=== PATIENT | female | born 1955 | race Caucasian/White ===

== ENCOUNTER 2025-10-17 10:21 | Inpatient (IN) | payer MEDICARE, OTHER, SELFPAY ==
[2025-10-03 14:03] VITALS: BMI 22.6
--- NOTE | 2025-10-04 14:16 | PTCARENOTE ---
Abn ECG, Dr. Woodruff notified, no additional interventions required.
[2025-10-17] VITALS (10 sets, daily range): BP systolic 100–139; BP diastolic 53–85; BMI 22.6
[2025-10-17] MEDS: CELEBREX 200 MG PO (11:01)
[2025-10-17] MEDS: TYLENOL 1000 MG PO (11:01)
[2025-10-17] MEDS: NORMOSOL-R/PLASMALYTE-A 1000 IV (11:12)
[2025-10-17] MEDS: EMEND 40 MG PO (11:16)
--- NOTE | 2025-10-17 13:57 | W.PN.UPDATE ---
Update Note
Progress Note Update
69F s/p R 1st MPJ fusion, Jeanna 2/, neuroma excision /, tailors bunionectomy
- would appreciate admission to hospitalist service
- NWB RLE
- pt/ot eval
- elevate RLE on 2-3 pillows, ice behind the knee
- 24 hrs sx ppx abx
- postop analgesia
- will reassess on AM rounds
--- NOTE | 2025-10-17 14:28 | HPS.HSE ---
Family Physician
-
Family Physician: Pilar Singh
Chief Complaint
-
right first MPJ fusion
History of Present Illness
Ms. 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 She underwent right first MPJ fusion, Jeanna 2/, neuroma
excision 2/3, and tailor's bunion ectomy. She tolerated the procedure well. Remains hemodynamically stable. She is to be nonweightbearing on her right lower extremity. She will need PT/OT evaluation. Podiatry following.
Medical History
Past Medical History
Past Medical History: Reports Other
Additional Past Medical History:
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
Past Surgical History: Reports Other
Additional Past Surgical History:
Right elbow (2006), bilateral cataracts (04/2024)
Social History
Tobacco: Non-smoker
Family History
Family History: Not pertinent
Allergies / Home Medications
Allergies reflects when Allergies were last updated in [employer].
Home Medications with original date entered in [employer]
Allergy/Medication List:
Allergies
Allergy/AdvReac Type Severity Reaction Status Date / Time
bee venom protein (honey bee) Allergy Anaphylaxis Verified 10/17/25 10:50
prochlorperazine Allergy Tardive Unverified 10/17/25 10:50
Dyskinesia
Home Medications
albuterol sulfate 90 mcg/actuation aerosol inhaler 2 puff inhalation PRN PRN SOB, Wheezes 10/03/25
cholecalciferol (vitamin D3) 50 mcg (2,000 unit) capsule (Vitamin D3) 50 mcg PO DAILY 10/03/25
cyanocobalamin (vitamin B-12) 1,000 mcg tablet (Vitamin B-12) 1,000 mcg PO DAILY 10/03/25
epinephrine 0.3 mg/0.3 mL injection, auto-injector 0.3 mg IM Q5-15M PRN Anaphylaxis 10/03/25
hyoscyamine sulfate 0.375 mg tablet,extended release,12 hr (Levbid) 0.375 mg PO PRN PRN IBS 10/03/25
omega 6-xjx-ohc-fish oil 1,000 mg (120 mg-180 mg) capsule (Fish Oil) 2 cap PO QPM 10/03/25
red yeast rice 600 mg tablet 1,200 mg PO QPM 10/03/25
turmeric 400 mg capsule 1,000 mg PO QPM 10/03/25
Review of Systems
-
History Source: Patient
A 12 point ROS was completed and negative except as noted: Yes
Musculoskeletal: Reports Joint Pain (R foot)
Physical Exam
Vital Signs
Vital Signs
Temp Pulse Resp BP Pulse Ox
98.2 F 77 13 123/76 96
10/17/25 13:50 10/17/25 14:15 10/17/25 14:15 10/17/25 14:00 10/17/25 14:15
Physical Exam
General: No Apparent Distress
Impression/Plan
-
General: No Apparent Distress, Comfortable and Conversant
HEENT: NormoCephalic, Moist mucous membranes, Atraumatic
Respiratory: Clear and Non Labored Respirations
Cardiac: S1/S2 and Regular Rhythm; No Rub or Gallop
GI: Soft, Non Tender, Non Distended and Normal Bowel Sounds
Musculoskeletal: No Edema, R foot with postsurgical dressing CDI
Skin: Warm and dry
: NO [place]
Neuro: Awake, Alert, Nonfocal/grossly intact
Psych: Calm and Intact Judgment/Insight
Ms. 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 She underwent right first MPJ fusion, Jeanna 2/3, neuroma
excision 2/3, and tailor's bunion ectomy. She tolerated the procedure well. Remains hemodynamically stable. She is to be nonweightbearing on her right lower extremity. She will need PT/OT evaluation. Podiatry following.
Status post right foot surgery:
- Status post right first MPJ fusion, Jeanna 2/3, neuroma excision 2/3, and tailor's bunionectomy 10/17/2025
- Tolerated procedure well
- Nonweightbearing right foot
- Pain control as needed
- To be evaluated by PT/OT
- Podiatry following
Asthma:
- No acute exacerbation
- Continue albuterol as needed for wheezing
DVT prophylaxis: Subcu heparin
CODE STATUS: Full code
[2025-10-17] MEDS: HEPARIN 5000 UNITS SC (16:39)
[2025-10-17] MEDS: NEURONTIN 300 MG PO ×2 (16:39→22:37)
[2025-10-17] MEDS: ANCEF 10 IV (20:13)
[2025-10-18] MEDS: HEPARIN 5000 UNITS SC (00:33)
[2025-10-18] MEDS: ZOFRAN 4 MG IV (00:59)
[2025-10-18 03:15] VITALS: BP 118/67
[2025-10-18] MEDS: ANCEF 10 IV ×2 (03:54→12:12)
[2025-10-18 07:21] LABS: Hematocrit 37.9 % (37.0-47.0); Hemoglobin 13.1 g/dL (12.0-16.0); Mean Corp Hgb Conc. 34.6 g/dL (33.0-37.0); Mean Corpuscular Volume 85.7 fL (81.0-99.0); Nucleated Red Blood Cells % 0 %; Platelet Count 271 10^3/uL (130-400); Red Cell Dist. Width 12.9 % (11.5-14.5)
[2025-10-18 08:05] VITALS: BP 110/58
[2025-10-18 08:18] LABS: Blood Urea Nitrogen 11 mg/dl (7-17); Calcium 9.1 mg/dl (8.4-10.2); Carbon Dioxide 27 mmol/L (22-30); Chloride 102 mmol/L (98-107); Estimated Creatinine Clearance 61 ml/min; Glucose 118 mg/dl (70-99); Potassium 4.4 mmol/L (3.5-5.1); Sodium 135 mmol/L (135-145); eGFR > 60.00
--- NOTE | 2025-10-18 08:41 | W.PN.UPDATE ---
Update Note
Progress Note Update
69F s/p R 1st MPJ fusion, Jeanna 2, neuroma excision 2/3, tailors bunionectomy. Patient doing well this AM on AM rounds. CFT wnl, sensation intact to pedal distributions, motor function intact to toes, calf soft supple nontender to touch, mild
drainage on dressing.
- NWB RLE
- pt/ot eval
- dressings remain C/D/I
- elevate RLE on 2-3 pillows, ice behind the knee
- 24 hrs sx ppx abx, not a barrier to discharge
- postop analgesia
- She may follow up in office with myself or Narinder.
[2025-10-18] MEDS: VITAMIN D3 (cholecalciferol) 50 MCG PO (09:32)
[2025-10-18] MEDS: HEPARIN SC (09:32)
[2025-10-18] MEDS: NEURONTIN 300 MG PO (09:32)
[2025-10-18] MEDS: VITAMIN B-12 1000 MCG PO (09:33)
[2025-10-18] MEDS: MOTRIN 600 MG PO (09:38)
[2025-10-18 10:13] VITALS: BP 134/69; PULSE 78; O2SAT 95
--- NOTE | 2025-10-18 10:25 | W.PN.HOSP.TC ---
Today's Communication/Plan
-
dc home
pain control
Assessment / Plan
Assessment / Plan
General: No Apparent Distress, Comfortable and Conversant
HEENT: NormoCephalic, Moist mucous membranes, Atraumatic
Respiratory: Clear and Non Labored Respirations
Cardiac: S1/S2 and Regular Rhythm; No Rub or Gallop
GI: Soft, Non Tender, Non Distended and Normal Bowel Sounds
Musculoskeletal: No Edema, R foot with postsurgical dressing CDI, sensation intact R foot toes, able to move it to some extent
Skin: Warm and dry
: NO [place]
Neuro: Awake, Alert, Nonfocal/grossly intact
Psych: Calm and Intact Judgment/Insight
Ms. 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 She underwent right first MPJ fusion, Jeanna 2/3, neuroma
excision 2/3, and tailor's bunion ectomy. She tolerated the procedure well. Remains hemodynamically stable. She is to be nonweightbearing on her right lower extremity. She will need PT/OT evaluation. Podiatry following.
Status post right foot surgery:
- Status post right first MPJ fusion, Jeanna 2/3, neuroma excision 2/3, and tailor's bunionectomy 10/17/2025
- Tolerated procedure well
- Nonweightbearing right foot possibly 4 weeks. f/u appt with podiatry to reassess may be in boot thereafter -per pt.
- Pain control as needed
- d/w with Dr. Pelaez-qamar aspirin 325mg for DVT ppx.
- Podiatry following
Asthma:
- No acute exacerbation
- Continue albuterol as needed for wheezing
DVT prophylaxis: Subcu heparin
CODE STATUS: Full code
PT-HH
Dispo-home vn.
More than 30 minutes spent in discharge including
Final examination of the patient
Summarizing hospital stay
Instructions for continuing care to all relevant caregivers
Preparation of discharge records, prescriptions, and referral forms
Total time spent (in minutes): 53
Anticipated Discharge: Today
Subjective/Interval History
-
Date of Service: October 18, 2025
denies severe pain in R foot
was feeling/nauseous overnight but not this morning
Objective Data
-
Labs:
Laboratory Results
10/18/25
06:36
WBC 9.8
Hgb 13.1
Hct 37.9
Plt Count 271
Sodium 135
Potassium 4.4
Chloride 102
Carbon Dioxide 27
BUN 11
Creatinine 0.7
Glucose 118 H
Calcium 9.1
Vital Signs:
Vital Signs
Temp Pulse Resp BP Pulse Ox
97.6 F 51 15 110/58 96
10/18/25 08:05 10/18/25 08:05 10/18/25 08:05 10/18/25 08:05 10/18/25 08:05
I&O
10/17/25 10/18/25 10/19/25
06:59 06:59 06:59
Intake Total 630 / 630
Balance 630 / 630
--- NOTE | 2025-10-18 10:37 | W.DCSUMMARY ---
Discharge Summary
Discharge Data
Date of Admission: 10/17/25
Date of Discharge: 10/18/25
-
Pending Results: No
Hospital Course
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 She underwent right first MPJ fusion, Jeanna 2/3, neuroma excision 2/3, and
tailor's bunion ectomy. She tolerated the procedure well. Remains hemodynamically stable. She is to be nonweightbearing on her right lower extremity. Postop patient did well with physical and Occupational Therapy. Per creative developer to start
patient on aspirin 325 mg daily for DVT prophylaxis. Patient be discharged home with home health and patient to follow-up outpatient with her surgeon.
Discharge Plan
-
Patient Disposition: Home with Home Care
Discharge Diagnosis/Procedures: Status post Right 1st MPJ fusion, Jeanna 2/3, neuroma excision 2/3, and tailor's bunionectomy 10/17/2025
Condition: Fair
Activity: Do not bear weight R leg
Driving Restrictions: No driving
Other Services: VN, PT and OT
Activity Restrictions/Additional Instructions:
elevate Right leg on 2-3 pillows, ice behind the knee
Referrals:
Pilar Singh DO [Family Provider, Internal Medicine] - in less than 1 week
Cuong Barcenas DPM [Active, Podiatry] - in two weeks
Prescriptions:
New
acetaminophen [Tylenol] 325 mg tablet
650 mg PO Q4H PRN (Reason: Pain) Qty: 30 0RF
tramadol 25 mg tablet
25 mg PO Q8HPRN PRN (Reason: severe pain) Qty: 15 0RF
aspirin 325 mg tablet
325 mg PO DAILY Qty: 28 0RF
Rx Instructions:
Take with meals/snacks
Continued
cyanocobalamin (vitamin B-12) [Vitamin B-12] 1,000 mcg Tablet
1,000 mcg PO DAILY
hyoscyamine sulfate [Levbid] 0.375 mg Tablet Extended Release 12 Hr
0.375 mg PO PRN PRN (Reason: IBS)
epinephrine 0.3 mg/0.3 mL Auto-Injector
0.3 mg IM Q5-15M PRN (Reason: Anaphylaxis)
albuterol sulfate 90 mcg/actuation Hfa Aerosol Inhaler
2 puff INHALATION PRN PRN (Reason: SOB, Wheezes)
cholecalciferol (vitamin D3) [Vitamin D3] 50 mcg (2,000 unit) Capsule
50 mcg PO DAILY
omega 0-yly-rlo-fish oil [Fish Oil] 1,000 (120-180) mg Capsule
2 cap PO QPM
red yeast rice 600 mg Tablet
1,200 mg PO QPM
turmeric 400 mg Capsule
1,000 mg PO QPM
Discharge Orders:
Discharge Patient (As Directed); Ordered 10/18/25
Ordered By: Patricio Quiles
Discharge Date and Time
Print Language: PORTUGUESE
[2025-10-18 12:31] VITALS: BP 102/53
--- NOTE | 2025-10-18 13:08 | CM ---
CM met with pt bedside
Pt resides alone in a house built into a hill, she will be staying on the bottom level, [address]
Pt is typically indep without any ADs
She has bought and has been practicing utilizing a WW, scooter, shower chair and grab bars for the last few weeks
Pt will be NWB RLE
PCP- Pilar Singh
Rx- [facility]
VN recs and referral to [facility] per pt request
Son will transport home and provide support as needed
VN order requested
IMM verbally reviewed- copy provided
Discharge Disposition- home with [facility], spouse transport
--- NOTE | 2025-10-18 13:32 | VNURNOTE ---
Home Health Liaison met with patient at bedside to discuss [facility] nurse/therapy, visits, schedule and homebound status. Patient is agreeable and understands that visits at home will be 2-3 x per week to assess and teach medical management. Patient
is aware that [facility] will contact them for start of care within a week after discharge from . Provided contact number for [facility].
[facility] referral completed in [facility].
== END 2025-10-18 13:35 | disposition home health service (06) | DRG 505 ==
LOC: 2 SOUTH 10:21
PROVIDERS: Internal Medicine; ADMITTING PHYSICIAN Student in an Organized Health Care Education/Training Program; ATTENDING PHYSICIAN Hospitalist; FAMILY PHYSICIAN Internal Medicine
PROC: 0SGM04Z Fusion of Right Metatarsal-Phalangeal Joint with Internal Fixation Device, Open Approach (ICD-10-PCS; 2025-10-17)
PROC: 0QBN0ZZ Excision of Right Metatarsal, Open Approach (ICD-10-PCS; 2025-10-17)
DX: M21.621 Bunionette of right foot (principal); G89.18 Other acute postprocedural pain; J45.909 Unspecified asthma, uncomplicated; Z79.899 Other long term (current) drug therapy
CPT/HCPCS: 80048; 85025; 88304; 93005; 97116; 97163; 97166; 97530; 97535; C1713; C1776